=== PATIENT | male | born 1960 | race Caucasian/White ===

== ENCOUNTER 2018-09-26 08:43 | Emergency (ER) | payer BC ==
[2018-09-26] MEDS ORDERED: CEPHALEXIN 500 MG CAPSULE PO STA (08:54)
--- NOTE | 2018-09-26 09:00 | Emergency Department Record ---
History of Present Illness - General Chief Complaint: Laceration(s) Stated Complaint: RIGHT THUMB LAC Time Seen by Provider: 09/26/18 08:54 Source: Patient Mode of Arrival: Ambulatory Limitations: No limitations - History of Present Illness Initial Commments: 57 yo male presents with a right thumb laceration. He was cutting material on a job site with a table saw injuring the tip of his right thumb. No loss of ROM. No numbness or tingling. He is up to date on immunizations. Onset/Timin -: Minutes(s) Location: Other Place: Work Context: Accidental, Power tool use Associated Symptoms: None, Pain Treatments Prior to Arrival: Bandage Treatment Prior to Arrival Comment:: NA - [place] Coma Scale Eye Response: (4) Open spontaneously Motor Response: (6) Obeys commands Verbal Response: (5) Oriented [place] Total: 15 - Related Data Hx Tetanus Toxoid Vaccination: Yes Year of Tetanus Vaccination: 2017 Patient Tetanus UTD (within 5 yrs): Yes Previous Rx's Medication Instructions Recorded Clindamycin HCl [Cleocin HCl] 300 mg PO QID #28 capsule 09/26/18 Allergies Allergy/AdvReac Type Severity Reaction Status Date / Time Penicillins Allergy RASH Unverified 12/20/17 08:36 lisinopril AdvReac Mild HEADACHES Unverified 12/20/17 08:36 Travel Screening - Travel/Exposure Within Last 30 Days Have you traveled within the last 30 days?: Yes Location Detail:: [place] - Travel Symptoms Symptom Screening: None Review of Systems Constitutional: Denies: Chills, Fever, Malaise, Weakness Eyes: Denies: Eye discharge ENT: Denies: Congestion, Throat pain Respiratory: Denies: Cough Cardiovascular: Denies: Chest pain, Syncope Endocrine: Denies: Fatigue Gastrointestinal: Denies: Abdominal pain, Diarrhea, Nausea, Vomiting Genitourinary: Denies: Dysuria, Frequency Musculoskeletal: Denies: Arthralgia, Back pain, Joint swelling, Myalgia Skin: Reports: Other (laceration). Denies: Bruising, Change in color Neurological: Denies: Headache, Numbness, Tingling Psychiatric: Denies: Anxiety Hematological/Lymphatic: Denies: Easy bleeding, Easy bruising Past Medical History - SOCIAL HISTORY Smoking Status: Former smoker Alcohol Use: Occasional Drug Use: Rare Drug Use Detail:: Marijuana - RESPIRATORY Hx Respiratory Disorders: No - CARDIOVASCULAR Hx Cardio Disorders: Yes Hx Hypertension: Yes - NEURO Hx Neuro Disorders: No - GI Hx GI Disorders: No - Hx Genitourinary Disorders: No - ENDOCRINE Hx Endocrine Disorders: No - MUSCULOSKELETAL Hx Musculoskeletal Disorders: No - PSYCH Hx Psych Problems: No - HEMATOLOGY/ONCOLOGY Hx Hematology/Oncology Disorders: No Family Medical History Any Significant Family History?: No Physical Exam - General General Appearance: Alert, Oriented x3, Cooperative, No acute distress Limitations: No limitations - Head Head exam: Atraumatic, Normal inspection - Eye Eye exam: Normal appearance. negative: Conjunctival injection - ENT ENT exam: Normal exam Ear exam: Normal external inspection Nasal Exam: Normal inspection Mouth exam: Normal external inspection - Neck Neck exam: Normal inspection - Cardiovascular Peripheral Pulses: 2+: Radial (R) - Extremities Extremities exam: Full ROM, Normal capillary refill, Tenderness, Other (no subungual hematoma). negative: Normal inspection, Joint swelling Image of Finger Tip: 1 - 1.2cm linear laceration, apears clear without FB, the nail has a small 2mm avulsion at the medial distal tip 2 - 2mm avulsion of nail - Neurological Neurological exam: Alert, Normal gait, Oriented X3 - Psychiatric Psychiatric exam: Normal affect, Normal mood - Skin Skin exam: Other (laceration) Course Vital Signs 09/26/18 08:44 Temperature 98.5 F Pulse Rate 81 Respiratory 20 Rate Blood Pressure 179/110 Pulse Ox 96 - Reevaluation(s) Reevaluation #1: Tetanus is up to date Digital Block: Sterile skin prep. 4.5ml of Sensorcaine Plain XR of the finger tip ordered 09/26/18 08:57 The XR was reviewed On the lateral view there appears to be possible avulsion of the tip This was discussed with the patient. He was placed on antibiotics I offered hand surgery referral. He states he will follow up with the PCP with any concerns We discussed signs and symptoms of infections and reason for close follow up/ return Procedure Thumb laceration 13mm Sterile prep Copious NS irrigation No FB, bony or tendon injury visualized Prolene 4-0 Suture used 5 sutures placed with good wound approximation We discussed home care, signs of symptoms for immediate return and suture removal 09/26/18 09:36 09/26/18 09:51 Rx changes to Clinadmycin Disposition Disposition: Discharge Clinical Impression: Open fracture of tuft of distal phalanx of right thumb Thumb laceration Qualifiers: Encounter type: initial encounter Damage to nail status: without damage Foreign body presence: without foreign body Laterality: right Qualified Code(s) : S61.011A - Laceration without foreign body of right thumb without damage to nail, initial encounter Disposition: Home, Self-Care Condition: (1) Good Instructions: Laceration (ED) Additional Instructions: Return in 10 days for suture removal Keep the injury dry and clean and avoid re-injury at work Take the Keflex as directed Return for a wound recheck if you have pain, redness, swelling, pus or any concerns Prescriptions: Clindamycin HCl [Cleocin HCl] 300 mg PO QID #28 capsule Referrals: VENKAT PAIGE M.D. [MEDICAL DOCTOR] - Forms: Patient Portal Access Time of Disposition: 09:45 Quality - Quality Measures Quality Measures: N/A - Blood Pressure Screening Does Patient Have Any of the Following: Active Dx of HTN Blood Pressure Classification: Hypertensive Reading Systolic Measurement: 139 Diastolic Measurement: 110 Screening for High Blood Pressure: Patient Exclusion, Hx of HTN [[id number]]
[2018-09-26] MEDS: Diph,Pert(Acell),Tet Vac 0.5 ML SYR IM ONE ×2 (09:11→09:18)
--- NOTE | 2018-09-27 20:31 | RADIOLOGY REPORT ---
EXAM: THUMB, RIGHT HISTORY: CUT END OF RIGHT THUMB ON TABLE SAW. TECHNIQUE: Three views of the right thumb. COMPARISON: None. ENCOUNTER: Initial. FINDINGS: There is normal bone mineralization. There is a tiny defect in the tuft of the first distal phalanx, best visualized on the lateral view. There is associated linear lucency within the adjacent soft tissues consistent with laceration. No definite bone fragment is noted. No other evidence of fracture nor dislocation. Mild degenerative changes of the first MCP and IP joints. Moderate degenerative changes of the first carpal- metacarpal joint. There is a tiny linear metallic density projecting within the soft tissues anterior to the second MCP joint. This measures 2 mm in length. Foreign body is not excluded. IMPRESSION: 1. FINDINGS CONSISTENT WITH LACERATION OF THE TIP OF THE FIRST DIGIT. THERE DOES APPEAR TO BE A FOCAL LUCENT DEFECT WITHIN THE CONTIGUOUS TUFT OF THE FIRST DISTAL PHALANX, THOUGH NO FRACTURE FRAGMENT IS IDENTIFIED. 2. SMALL LINEAR DENSITY PROJECTING IN THE ANTERIOR SOFT TISSUES AT THE LEVEL OF THE SECOND MCP JOINT WITH FOREIGN BODY NOT EXCLUDED. ARTHRITIC CHANGES. JOB NUMBER: [id number] [facility]
== END 2018-09-26 10:00 | disposition home or self-care (01) ==
LOC: ER 08:43
DX: S62.521B Displaced fracture of distal phalanx of right thumb, initial encounter for open fracture (principal); W31.2XXA Contact with powered woodworking and forming machines, initial encounter; Y99.0 Civilian activity done for income or pay; I10 Essential (primary) hypertension; Z87.891 Personal history of nicotine dependence
CPT/HCPCS: 12041; 90715; 96372; 99283; 99284